=== PATIENT | female | born 1960 | race Two or more races ===

== ENCOUNTER 2017-09-24 13:19 | Emergency (ER) | payer MEDICAID, OTHER, SELFPAY ==
[~2017-09-24] VITALS: Ht 162.6 cm; Wt 64.0 kg
[2017-09-24] MEDS ORDERED: OXYcodone/APAP 5/325MG TABLET PO ONE (14:00)
[2017-09-24 14:35] LABS: BASOPHILS # (AUTO) 0.02 x10^3/uL (0-0.1); BASOPHILS % (AUTO) 1 % (0-1); EOSINOPHILS # (AUTO) 0.12 x10^3/uL (0-0.4); EOSINOPHILS % (AUTO) 3 % (1-7); LYMPHOCYTES # (AUTO) 1.37 x10^3/uL (1-3.4); LYMPHOCYTES % (AUTO) 33 % (22-44); MD NO; MEAN CORPUSCULAR HEMOGLOBIN 31.7 pg (27.0-34.8); MEAN CORPUSCULAR HGB CONC 33.7 g/dL (32.4-35.8); MEAN CORPUSCULAR VOLUME 93.9 fL (80-100); MONOCYTES # (AUTO) 0.38 x10^3/uL (0.2-0.8); MONOCYTES % (AUTO) 9 % (2-9); NEUTROPHILS # (AUTO) 2.26 x10^3/uL (1.8-6.8); NEUTROPHILS % (AUTO) 54 % (42-75); PLATELET COUNT 230 x10^3/uL (130-400); RED BLOOD COUNT 4.34 x10^6/uL (3.82-5.3); RED CELL DISTRIBUTION WIDTH 13.6 % (9.6-15.2)
[2017-09-24] MEDS ORDERED: OXYcodone/APAP 5/325MG TABLET ONE (14:35)
[2017-09-24 14:43] LABS: ALBUMIN 3.7 g/dL (3.4-5.0); ANION GAP 4 mmol/L (5-15); CALCIUM 8.6 mg/dL (8.5-10.1); CHLORIDE 113 mmol/L (98-107); CREATININE 0.79 mg/dL (0.55-1.02)
[2017-09-24 16:01] VITALS: BP 160/81
== END 2017-09-24 16:16 | disposition home or self-care (01) ==
LOC: ED 15:55
DX: S00.12XA Contusion of left eyelid and periocular area, initial encounter (principal); S40.022A Contusion of left upper arm, initial encounter; R55 Syncope and collapse; W18.30XA Fall on same level, unspecified, initial encounter; Y93.89 Activity, other specified; Y92.89 Other specified places as the place of occurrence of the external cause; Y99.8 Other external cause status
CPT/HCPCS: 36415; 70486; 80048; 82040; 85025; 93005; 99285

== ENCOUNTER 2018-05-12 17:18 | Emergency (ER) | payer SELFPAY ==
[~2018-05-12] VITALS: Ht 162.6 cm; Wt 60.0 kg
[2018-05-12] MEDS ORDERED: ONDANSETRON ODT 4 MG PO ONE (18:00)
[2018-05-12 18:06] LABS: BASOPHILS # (AUTO) 0.01 x10^3/uL (0-0.1); BASOPHILS % (AUTO) 0 % (0-1); EOSINOPHILS % (AUTO) 0 % (1-7); LYMPHOCYTES # (AUTO) 0.73 x10^3/uL (1-3.4); LYMPHOCYTES % (AUTO) 9 % (22-44); MD NO; MEAN CORPUSCULAR HEMOGLOBIN 32.5 pg (27.0-34.8); MEAN CORPUSCULAR HGB CONC 34.2 g/dL (32.4-35.8); MEAN PLATELET VOLUME 9.6 fL (7.4-10.4); MONOCYTES # (AUTO) 0.19 x10^3/uL (0.2-0.8); MONOCYTES % (AUTO) 2 % (2-9); NEUTROPHILS # (AUTO) 7.41 x10^3/uL (1.8-6.8); NEUTROPHILS % (AUTO) 89 % (42-75); PLATELET COUNT 148 x10^3/uL (130-400); RED BLOOD COUNT 5.22 x10^6/uL (3.82-5.3); RED CELL DISTRIBUTION WIDTH 13.4 % (9.6-15.2)
[2018-05-12 18:06] LABS: RAPID INFLUENZA A Negative (Negative); RAPID INFLUENZA B Negative (Negative)
[2018-05-12 18:18] LABS: ALBUMIN 3.5 g/dL (3.4-5.0); ANION GAP 10 mmol/L (5-15); CALCIUM 9.3 mg/dL (8.5-10.1); CHLORIDE 91 mmol/L (98-107); CREATININE 1.21 mg/dL (0.55-1.02)
--- NOTE | 2018-05-12 18:56 | NUR ---
C/O PAIN IN HEAD & CHEST, EAR PAIN, GEN BODY ACHES, VOICE SQUEAKY. SX STARTED 3 DAYS AGO. TOOK TYLENOL - LAST DOSE "BEFORE NOON" TODAY. NO FLU VACC THIS SEASON.
[2018-05-12] MEDS ORDERED: LISINOPRIL (19:08)
[2018-05-12] MEDS ORDERED: DIPHENHYDRAMINE 50 MG/ML, 1ML IVPush ONE (19:30)
[2018-05-12] MEDS ORDERED: SODIUM CHLORIDE FLUSH 10ML SYR IVF ONE (19:30)
[2018-05-12] MEDS ORDERED: METOCLOPRAMIDE 5 MG/ML, 2ML IVPush ONE (19:30)
[2018-05-12] MEDS ORDERED: POTASSIUM CHLORIDE 20 MEQ TAB.ER.PRT PO ONE (19:30)
[2018-05-12] MEDS ORDERED: SODIUM CHLORIDE 0.9% 1,000ML IVBOLUS ONE (19:30)
[2018-05-12] MEDS ORDERED: KETOROLAC 30 MG/1 ML IVPush ONE (19:30)
[2018-05-12 19:35] LABS: CULTURE INDICATED? YES; MICROSCOPIC INDICATED
[2018-05-12] MEDS ORDERED: KETOROLAC 30 MG/1 ML ONE (19:58)
[2018-05-12] MEDS ORDERED: ONDANSETRON ODT 4 MG ONE (19:58)
[2018-05-12] MEDS ORDERED: DIPHENHYDRAMINE 50 MG/ML, 1ML ONE (19:58)
[2018-05-12] MEDS ORDERED: METOCLOPRAMIDE 5 MG/ML, 2ML ONE (19:58)
[2018-05-12] MEDS ORDERED: POTASSIUM CHLORIDE 20 MEQ TAB.ER.PRT ONE (19:59)
--- NOTE | 2018-05-12 20:10 | NUR ---
DR SCHWARTZ BS: VO TO CANCEL IV AND IV MEDS. PT TO BE DISCHARGED W/ ORAL ANTIBIOTIC RX. ORAL PAIN MED TO BE ORDERED PRIOR TO DC.
[2018-05-12 20:13] VITALS: BP 128/89
[2018-05-12] MEDS ORDERED: OXYcodone/APAP 10/325MG TABLET ONE (20:28)
[2018-05-12] MEDS ORDERED: OXYcodone/APAP 10/325MG TABLET PO ONE (20:30)
== END 2018-05-12 21:01 | disposition home or self-care (01) ==
LOC: ED 20:42
DX: J18.9 Pneumonia, unspecified organism (principal); R51 Headache; E87.6 Hypokalemia; I10 Essential (primary) hypertension
CPT/HCPCS: 36415; 71046; 80048; 81001; 82040; 85025; 87040; 87086; 87400; 99284; Q0162